=== PATIENT | male | born 1990 | race Caucasian/White ===

== ENCOUNTER 2018-05-06 22:53 | Observation (INO) ==
[2018-05-07] MEDS ORDERED: Sod Chloride 0.9% Inj 1,000 ML IV.SIG ONE ×2 (00:03→00:48)
[2018-05-07 00:36] LABS: Baso % (Auto) 0.4 % (0.0-2.0); Eos # (Auto) 0.1 th/mm3 (0.0-0.4); Eos % (Auto) 1.5 % (0.0-4.0); Hematocrit 46.1 % (39.0-51.0); Hemoglobin 15.5 gm/dL (13.0-17.0); Lymph % (Auto) 25.2 % (9.0-44.0); Mean Corpuscular HGB Conc 33.6 % (32.0-36.0); Mean Corpuscular Hemoglobin 30.9 pg (27.0-34.0); Mean Corpuscular Volume 91.9 fL (80.0-100.0); Mean Platelet Volume 9.4 fL (7.0-11.0); Mono # (Auto) 0.4 th/mm3 (0.0-0.9); Mono % (Auto) 5.2 % (0.0-8.0); Neut # (Auto) 5.4 th/mm3 (1.8-7.7); Neut % (Auto) 67.7 % (16.0-70.0); Platelet Count 193 th/mm3 (150-450); Red Blood Count 5.01 mil/mm3 (4.50-5.90); Red Cell Distribution Width 13.4 % (11.6-17.2); White Blood Count 7.9 th/mm3 (4.0-11.0)
--- NOTE | 2018-05-07 00:42 | CT ---
EXAM DATE: 05/07/2018 12:37 AM EDT AGE/SEX: 28 years / Male INDICATIONS: Seizure. CLINICAL DATA: This is the patient's initial encounter. Patient reports that signs and symptoms have been present for 1 day and indicates a pain score of Nonresponsive. MEDICAL/SURGICAL HISTORY: . Seizures / epilepsy None. RADIATION DOSE: 56.35 CTDI (mGy) COMPARISON: [facility] [place], CT BRAIN W/O CONTRAST, 08/11/2013. . TECHNIQUE: CT of the head without contrast. Using automated exposure control and adjustment of the mA and/or kV according to patient size, radiation dose was kept as low as reasonably achievable to ob tain optimal diagnostic quality images. DICOM format image data is available electronically for revi ew and comparison. FINDINGS: Cerebrum: The ventricles are normal for age. No evidence of midline shift, mass lesion, hemorrhage or acute infarction. No extraaxial fluid collections are seen. Posterior Fossa: The cerebellum and brainstem are intact. The 4th ventricle is midline. The cerebe llopontine angle is unremarkable. Extracranial: The visualized portion of the orbits is intact. Skull: The calvaria is intact. No evidence of skull fracture. CONCLUSION: 1. Negative CT Head non contrast. . Electronically signed by: Cl Vaughn MD 05/07/2018 12:40 AM EDT
[2018-05-07] MEDS ORDERED: SODIUM CHLOR IV.SIG ONE (00:49)
[2018-05-07] MEDS ORDERED: FOSPHENYTOIN IV.SIG ONE (00:49)
[2018-05-07 00:56] LABS: Creatine Kinase 152 U/L (39-308)
[2018-05-07 01:17] LABS: Anion Gap 17 meq/L (5-15); Blood Urea Nitrogen 16 mg/dL (7-18); Calcium 8.7 mg/dL (8.5-10.1); Carbon Dioxide 19.4 meq/L (21.0-32.0); Chloride 105 meq/L (98-107); Glomerular Filtration Rate 62 mL/min (>89); Glucose,Random 126 mg/dL (74-106); Magnesium 2.8 mg/dL (1.5-2.5); Potassium 3.9 meq/L (3.5-5.1); Sodium 141 meq/L (136-145)
--- NOTE | 2018-05-07 01:17 | ED ---
HPI General Chief Complaint: Seizure Stated Complaint: Seizure Time Seen by Provider: 05/06/18 23:42 Related Data Home Medications Medication Instructions Recorded Confirmed levetiracetam [Keppra] 500 mg PO Q12H 05/06/18 05/06/18 Allergies Allergy/AdvReac Type Severity Reaction Status Date / Time No Known Allergies Allergy Verified 05/06/18 23:29 [facility] Social History Social History Substance History: No History of Abuse Second Hand Smoke Exposure: No Smoking Status: Never smoker How Often Do You Have a Drink Containing Alcohol: Monthly or less Recent Travel in [facility] within the Last 8 Weeks: No Recent Out of Country Travel within the Last 8 Weeks: No Immunization History Tetanus Immunization: Unsure Hx Influenza Vaccine This Season: No Course Initial Documented Vital Signs Temperature 97.9 F 05/06/18 23:24 Pulse Rate 81 05/06/18 23:24 Respiratory Rate 20 05/06/18 23:24 Blood Pressure 120/75 05/06/18 23:24 Pulse Oximetry 95 05/06/18 23:24 Last Documented Vital Signs Temperature 97.9 F 05/06/18 23:24 Pulse Rate 92 H 05/07/18 04:23 Respiratory Rate 18 05/07/18 04:23 Blood Pressure 106/80 05/07/18 04:23 Pulse Oximetry 97 05/07/18 04:23 Medical Decision Making MDM Narrative Medical decision making narrative: 28-year-old male with known history of grand mal seizure previously on Keppra currently off medication identified to have a witnessed tonic-clonic seizure by coworker without trauma. This was associated with tongue trauma and bladder incontinence. While and CT patient with generalized tonic-clonic seizure witnessed by solar installer technician 1 minute or longer with tongue trauma and incontinence; patient returned from CT post ictal confusion administered Ativan 1 mg IV and fosphenytoin 1 g Differential Diagnosis Differential Diagnosis: Seizure disorder, status epilepticus, medication noncompliance, Medical Records Medical records reviewed: Yes I reviewed the patient's medical records. Lab Data Lab results reviewed: Yes I reviewed the patient's lab results. Result diagrams: 05/07/18 00:15 05/07/18 00:15 Lab Results 05/07/18 05/07/18 Range/Units 00:15 00:15 WBC 7.9 (4.0-11.0) th/mm3 RBC 5.01 (4.50-5.90) mil/mm3 Hgb 15.5 (13.0-17.0) gm/dL Hct 46.1 (39.0-51.0) % MCV 91.9 (80.0-100.0) fL MCH 30.9 (27.0-34.0) pg MCHC 33.6 (32.0-36.0) % RDW 13.4 (11.6-17.2) % Plt Count 193 (150-450) th/mm3 MPV 9.4 (7.0-11.0) fL Neut % (Auto) 67.7 (16.0-70.0) % Lymph % (Auto) 25.2 (9.0-44.0) % [place] % (Auto) 5.2 (0.0-8.0) % Eos % (Auto) 1.5 (0.0-4.0) % Baso % (Auto) 0.4 (0.0-2.0) % Neut # (Auto) 5.4 (1.8-7.7) th/mm3 Lymph # (Auto) 2.0 (1.0-4.8) th/mm3 [place] # (Auto) 0.4 (0.0-0.9) th/mm3 Eos # (Auto) 0.1 (0.0-0.4) th/mm3 Baso # (Auto) 0.0 (0.0-0.2) th/mm3 WBC Differential . Differential Comment Auto diff final Sodium 141 (136-145) meq/L Potassium 3.9 (3.5-5.1) meq/L Chloride 105 (98-107) meq/L Carbon Dioxide 19.4 L (21.0-32.0) meq/L Anion Gap 17 H (5-15) meq/L BUN 16 (7-18) mg/dL Creatinine 1.36 H (0.60-1.30) mg/dL Estimated GFR 62 L (>89) mL/min Random Glucose 126 H (74-106) mg/dL Calcium 8.7 (8.5-10.1) mg/dL Magnesium 2.8 H (1.5-2.5) mg/dL Total Creatine Kinase 152 (39-308) U/L Serum Alcohol Less than 3 (0-5) mg/dL Imaging Data Radiologist's impression: Head CT 05/07/18 00:03 CONCLUSION: 1. Negative CT Head non contrast. . Discharge Plan Discharge Disposition Patient Disposition: 28 Still Patient Discharge Condition Condition: Stable Discharge Details Diagnosis: Epileptic seizure Physicians Team ED Provider: Meenu Lemos Primary Care Provider: Primary Care Kia Joseph Attending Provider: Ashkan Anderson Status ED Status: Admitted Observation Patient
[2018-05-07] MEDS ORDERED: Bisacodyl 10 MG Supp RECTAL PRN (03:01)
[2018-05-07] MEDS ORDERED: Acetaminophen 325 MG Tablet PO PRN (03:01)
[2018-05-07] MEDS ORDERED: Temazepam 15 MG Capsule PO PRN (03:01)
[2018-05-07] MEDS: Sod Chloride 0.9% Inj 1,000 ML IV.CONT SCH ×2 (04:20→17:32)
[2018-05-07] MEDS: Senna/Docusate Sodium 8.6/50 MG Tablet PO SCH ×2 (08:35→21:31)
[2018-05-07] MEDS: levETIRAcetam 500 MG Tablet PO SCH ×2 (08:36→21:32)
--- NOTE | 2018-05-07 10:27 | P.HP ---
History of Present Illness Primary Care Physician: No Primary Care Physician Chief Complaint: seizures History of Present Illness: This is a 28-year-old white male with significant past medical history of seizure disorder. Presented to the emergency room after he had a witnessed tonic-clonic seizure by coworker. Patient had tongue trauma and bladder incontinence. Indicates that he stopped taking Keppra in September of this year as he could not afford it. Prior to this, he had another seizure that was mild about a month ago but did not seek any medical assistance. Patient indicates he usually gets an aura where he sees lights before the seizure comes on. Occasionally he has dizziness. Denies any drug/alcohol use, no recent fevers, no recent trauma. No recent illnesses. During emergency room evaluation he went for CT and had another tonic-clonic seizure that was witnessed by the computer field technician that lasted about a minute or longer. He again had tongue trauma and incontinence. Postictal he was confused. He was given Ativan 1 mg IV and fosphenytoin 1 g. At this time he is only complaining of mild headache. The rest of the laboratory workup completed in the emergency room was significant for creatinine 1.36, magnesium 2.5. Patient has history of acute kidney injury about 4 years ago after he had another seizure and did require nephrology evaluation. Indicates that his renal function has been stable but does not know his baseline. He is making urine, denies any urinary symptoms. Occasionally takes ibuprofen for pain. He has not followed up with nephrology since prior admission. Patient is now admitted for further evaluation and treatment. - Diagnosis (1) Epileptic seizure (2) Non compliance with medical treatment (3) GENARO (acute kidney injury) Review of Systems All other systems reviewed negative except as stated in HPI [facility] - History History Provided By: Patient - Medical History Medical History: Medical History (Last Updated 05/07/18 @ 16:06 by FLORENCE Luciano) GENARO (acute kidney injury) Bradycardia Seizure - Family History Family History: Family History (Last Updated 05/07/18 @ 16:09 by FLORENCE Luciano) Mother Fibromyalgia - Tobacco History Second Hand Smoke Exposure: No Smoking Status: Never smoker - Alcohol History How Often Do You Have a Drink Containing Alcohol: Monthly or less - Substance Use History Substance History: No History of Abuse - Travel History Recent Travel in the [place] Within the Last 8 Weeks: No Recent Travel Out of the Country Within the Last 8 Weeks: No - Immunization History Tetanus Immunization: Unsure Hx Influenza Vaccine This Season: No Medications and Allergies Active Medications: Active Medications Acetaminophen (Tylenol) 650 mg PO Q4H PRN PRN Reason: Temp > 100.4 Al Hydroxide/Mg Hydroxide (Milk Of Magnesia Liq) 30 ml PO Q12H PRN PRN Reason: Mild Constipation Bisacodyl (Dulcolax Supp) 10 mg RECTAL DAILY PRN PRN Reason: SEVERE CONSITIPATION Sodium Chloride (Ns Inj) 1,000 mls @ 100 mls/hr IV.CONT .Q10H [facility] Last Admin: 05/07/18 04:20 Dose: 100 mls/hr Lactulose (Lactulose Liq) 30 ml PO DAILY PRN PRN Reason: SEVERE CONSITIPATION Levetiracetam (Keppra) 500 mg PO Q12H [facility] Last Admin: 05/07/18 08:36 Dose: 500 mg Ondansetron HCl (Zofran Inj) 4 mg IV.PUSH Q6H PRN PRN Reason: NAUSEA OR VOMITING Senna/Docusate Sodium (Rossy-Colace) 1 tab PO BID [facility] Last Admin: 05/07/18 08:35 Dose: Not Given Sennosides (Senokot) 17.2 mg PO Q12H PRN PRN Reason: Moderate Constipation Sodium Chloride (Ns Flush) 2 ml IV.FLUSH PRN PRN PRN Reason: FLUSH AFTER USING IV ACCESS Temazepam (Restoril) 15 mg PO HS PRN PRN Reason: INSOMNIA Allergies Allergy/AdvReac Type Severity Reaction Status Date / Time No Known Allergies Allergy Verified 05/06/18 23:29 Home Medications Medication Instructions Recorded Confirmed Type levetiracetam [Keppra] 500 mg PO Q12H 05/06/18 05/06/18 History Exam Vital signs: Vital Signs 05/06/18 23:24 05/07/18 00:42 05/07/18 02:04 Temperature 97.9 F Pulse Rate 81 Respiratory Rate 20 Blood Pressure 120/75 Pulse Oximetry 95 95 95 05/07/18 04:23 05/07/18 07:10 Temperature 98 F Pulse Rate 92 H 90 Respiratory Rate 18 16 Blood Pressure 106/80 115/71 Pulse Oximetry 97 96 Intake & Output 05/06/18 05/07/18 05/07/18 18:59 06:59 18:59 Weight 63.503 kg Narrative: GENERAL: Well-nourished, well-developed patient in no apparent distress. SKIN: Warm and dry. HEAD: Atraumatic. Normocephalic. EYES: Pupils equal and round. No scleral icterus. No injection or drainage. ENT: No nasal bleeding or discharge. Mucous membranes pink and moist. Bruising and and redness noted to inner aspect of bottom lip, laceration to tip of the tongue NECK: Trachea midline. No JVD. CARDIOVASCULAR: Regular rate and rhythm. RESPIRATORY: No accessory muscle use. Clear to auscultation. Breath sounds equal bilaterally. GASTROINTESTINAL: Abdomen soft, non-tender, nondistended. Hepatic and splenic margins not palpable. MUSCULOSKELETAL: Extremities without clubbing, cyanosis, or edema. No obvious deformities. NEUROLOGICAL: Awake and alert. No obvious cranial nerve deficits. Motor grossly within normal limits. Five out of 5 muscle strength in the arms and legs. Normal speech. PSYCHIATRIC: Appropriate mood and affect; insight and judgment normal. Results - Labs CBC & Chem 7: 05/07/18 00:15 05/07/18 00:15 Labs: Laboratory Results - last 24 hr 05/07/18 05/07/18 00:15 00:15 WBC 7.9 RBC 5.01 Hgb 15.5 Hct 46.1 MCV 91.9 MCH 30.9 MCHC 33.6 RDW 13.4 Plt Count 193 MPV 9.4 Neut % (Auto) 67.7 Lymph % (Auto) 25.2 [place] % (Auto) 5.2 Eos % (Auto) 1.5 Baso % (Auto) 0.4 Neut # (Auto) 5.4 Lymph # (Auto) 2.0 [place] # (Auto) 0.4 Eos # (Auto) 0.1 Baso # (Auto) 0.0 WBC Differential . Differential Comment Auto diff final Sodium 141 Potassium 3.9 Chloride 105 Carbon Dioxide 19.4 L Anion Gap 17 H BUN 16 Creatinine 1.36 H Estimated GFR 62 L Random Glucose 126 H Calcium 8.7 Magnesium 2.8 H Total Creatine Kinase 152 Serum Alcohol Less than 3 - Imaging Impressions Head CT 05/07/18 00:03 CONCLUSION: 1. Negative CT Head non contrast. . Caprini VTE Risk Assessment Caprini VTE Risk Assessment: No/Low Risk (score <= 1) Caprini Risk Assessment Model: Point Value = 1 Point Value = 2 Point Value = 3 Point Value = 5 Age 41-60 Minor surgery BMI > 25 kg/m2 Swollen legs Varicose veins or History of unexplained or recurrent spontaneous Oral contraceptives or hormone replacement Sepsis (< 1 month) Serious lung disease, including pneumonia (< 1 month) Abnormal pulmonary function Acute myocardial infarction Congestive heart failure (< 1 month) History of inflammatory bowel disease Medical patient at bed rest Age 61-74 Arthroscopic surgery Major open surgery (> 45 min) Laparoscopic surgery (> 45 min) Malignancy Confined to bed (> 72 hours) Immobilizing plaster cast Central venous access Age >= 75 History of VTE Family history of VTE Factor V Leiden Prothrombin [id number] Lupus anticoagulant Anticardiolipin antibodies Elevated serum homocysteine Heparin-induced thrombocytopenia Other congenital or acquired thrombophilia Stroke (< 1 month) Elective arthroplasty Hip, pelvis, or leg fracture Acute spinal cord injury (< 1 month) Prophylaxis Regimen: Total Risk Factor Score Risk Level Prophylaxis Regimen 0-1 Low Early ambulation 2 Moderate Order ONE of the following: *Sequential Compression Device (SCD) *Heparin 5000 units SQ BID 3-4 Higher Order ONE of the following medications: *Heparin 5000 units SQ TID *Enoxaparin/Lovenox 40 mg SQ daily (WT < 150 kg, CrCl > 30 mL/min) *Enoxaparin/Lovenox 30 mg SQ daily (WT < 150 kg, CrCl > 10-29 mL/min) *Enoxaparin/Lovenox 30 mg SQ BID (WT < 150 kg, CrCl > 30 mL/min) AND/OR *Sequential Compression Device (SCD) 5 or more Highest Order ONE of the following medications: *Heparin 5000 units SQ TID (Preferred with Epidurals) *Enoxaparin/Lovenox 40 mg SQ daily (WT < 150 kg, CrCl > 30 mL/min) *Enoxaparin/Lovenox 30 mg SQ daily (WT < 150 kg, CrCl > 10-29 mL/min) *Enoxaparin/Lovenox 30 mg SQ BID (WT < 150 kg, CrCl > 30 mL/min) AND *Sequential Compression Device (SCD) Assessment and Plan - Assessment (1) Epileptic seizure Code(s): G40.909 - Epilepsy, unspecified, not intractable, without status epilepticus Status: Acute (2) Non compliance with medical treatment Code(s): Z91.19 - Patient's noncompliance with other medical treatment and regimen Status: Acute (3) GENARO (acute kidney injury) Code(s): N17.9 - Acute kidney failure, unspecified Status: Acute - Plan This is a 28-year-old white male with significant past medical history of seizure disorder. Presented to the emergency room after he had a witnessed tonic-clonic seizure by coworker. Patient had tongue trauma and bladder incontinence. Indicates that he stopped taking Keppra in September of this year as he could not afford it. He had another tonic-clonic seizure while in the emergency room Recurrent seizures secondary to noncompliance, stopped taking Keppra in September 2017. Given Dilantin and Ativan in ED -Continuous cardiac telemetry monitoring -Seizure precautions -Neurochecks every 4 -Consult neurology for evaluation -Continue with Keppra 500 mg p.o. twice daily GENARO -was given IVF bolus in ED -Repeat BMP in am Non compliance with medication -CM consult for medication assistance Plan of care discussed with patient and RN. Further management of the patient will be dependent on hospital course We will follow up with neurology recommendations, possible discharge tomorrow if no recurrent seizures. (1) Epileptic seizure Qualifiers: Status epilepticus: without status epilepticus
[2018-05-07 20:22] LABS: Bilirubin,Urine Negative (Negative); Clarity,Urine Clear (Clear); Color,Urine Yellow (Yellw/Straw); Glucose,Urine (UA) Negative (Negative); Leukocyte Esterase,Urine Negative (Negative); Nitrite,Urine Negative (Negative); Specific Gravity,Urine 1.011 (1.002-1.035)
[2018-05-07 20:27] LABS: Amphetamine Screen,Urine Neg (Neg); Barbiturate Screen,Urine Neg (Neg); Cannabinoid Screen,Urine Pos (Neg); Cocaine Screen,Urine Neg (Neg)
[2018-05-07 20:33] LABS: Opiate Screen,Urine Neg (Neg)
[2018-05-08] MEDS: Sod Chloride 0.9% Inj 1,000 ML IV.CONT SCH ×2 (07:18→08:15)
[2018-05-08 08:14] VITALS: BP 128/61; PULSE 64; RESP 18; TEMP 97.8; O2SAT 96
--- NOTE | 2018-05-08 08:39 | MB ---
cc: Paula Gallagher MD DATE: 05/07/2018 REASON FOR CONSULTATION: Seizure. HISTORY OF PRESENT ILLNESS: The patient is a 28-year-old man with a history of epilepsy diagnosed a few years ago, apparently was having a witnessed clonic tonic seizure, witnessed by a coworker who works at a hotel. He had incontinence and some tongue biting. He stopped apparently taking his Keppra in September due to cost, but did tolerate it. He had an extensive evaluation he states in the past by Dr. Black, was admitted here for about a week. Apparently, he was given some Ativan and Cerebyx in the ED. Feeling better now. Offers no new issues. No complaints. No weakness. No family history of epilepsy. He has no history of head trauma. Normal . No STICK ROLLER infections. Normal developmental milestones. PAST MEDICAL HISTORY: Epilepsy, acute kidney injury, bradycardia and seizures. FAMILY HISTORY: Fibromyalgia in the mother. SOCIAL HISTORY: Works for a hotel, in the front desk attendant. Does not smoke. Drinks alcohol maybe monthly or less. No substance abuse. PHYSICAL EXAMINATION: VITAL SIGNS: Temperature is 98.1, pulse 66, respiratory rate 18, blood pressure 118/61. NEUROLOGIC: He is awake, alert. He is fluent. Pupils reactive. Face symmetrical. Tongue midline. Motor-cuenca, no drift or lag. Cerebellar is normal. DTRs 1+. Toes downgoing. Gait is withheld at this time. IMAGING: He had a CT of the head performed that was negative. LABORATORY DATA: CBC is normal. Chemistry CO2 was 19.4, creatinine 1.36, GFR 62, glucose 126, magnesium 2.8. Tox screen, alcohol was negative. Going back into the old chart, trying to find if there is any old records. Apparently, he was here. He saw Dr. Mane, read his EEG back in 2013, it was normal. He also had an echocardiogram at that time in 2013 and EF of 60-65%, no wall motion abnormalities. He had a brain MRI at that point and it was a negative study without contrast in 04/2014. IMPRESSION: Seizure. The patient states most of the time it occurs at night, but he had a mild aura today. I will continue his Keppra 500 mg every 12 hours. Maintain seizure precautions. Use Ativan p.r.n. No driving for six months. No swimming alone or climbing any ladders. He is advised to stay on day shift at work. Primary team will consult case management, get him assistance for the medication and possibly go to his other clinic for followup. If stable, can be discharged tomorrow. I will recheck his renal parameters tomorrow. He might be a little dehydrated. MD MI Gorman/REYES , 05:07 PM , 05:14 PM
--- NOTE | 2018-05-08 09:43 | P.PN ---
Subjective Interval history: Denies any auras, no dizziness, no changes in vision, no seizures. Has been voiding well. No other concerns. No acute changes overnight. Was seen by neurology yesterday. Anxious to go home, verbalizes understanding regarding compliance with taking medications. 12 point review of systems completed, negative except as noted above Physical Exam Vital signs: Vital Signs 05/07/18 10:39 05/07/18 14:07 05/07/18 14:57 Temperature 98.1 F Pulse Rate 82 70 66 Respiratory Rate 16 14 18 Blood Pressure 121/61 98/59 L 118/61 Pulse Oximetry 95 96 96 05/07/18 19:49 05/08/18 00:00 05/08/18 08:00 Temperature 98.2 F 97.8 F Pulse Rate 71 77 64 Respiratory Rate 16 16 18 Blood Pressure 126/74 118/68 128/61 Pulse Oximetry 98 99 96 Intake & Output 05/07/18 05/08/18 05/08/18 18:59 06:59 18:59 Intake Total 1480 / 1480 1000 / 1000 Balance 1480 / 1480 1000 / 1000 Intake: IV 1000 / 1000 1000 / 1000 NS Inj 1,000 ML @ 100 mls/hr IV 1000 / 1000 1000 / 1000 .CONT .Q10H [facility] Rx#:[id number] Oral 480 / 480 Narrative: GENERAL: Well-nourished, well-developed patient in no apparent distress. SKIN: Warm and dry. HEAD: Atraumatic. Normocephalic. EYES: Pupils equal and round. No scleral icterus. No injection or drainage. ENT: No nasal bleeding or discharge. Mucous membranes pink and moist. Bruising and and redness noted to inner aspect of bottom lip, laceration to tip of the tongue NECK: Trachea midline. No JVD. CARDIOVASCULAR: Regular rate and rhythm. RESPIRATORY: No accessory muscle use. Clear to auscultation. Breath sounds equal bilaterally. GASTROINTESTINAL: Abdomen soft, non-tender, nondistended. Hepatic and splenic margins not palpable. MUSCULOSKELETAL: Extremities without clubbing, cyanosis, or edema. No obvious deformities. NEUROLOGICAL: Awake and alert. No obvious cranial nerve deficits. Motor grossly within normal limits. Five out of 5 muscle strength in the arms and legs. Normal speech. PSYCHIATRIC: Appropriate mood and affect; insight and judgment normal. Results - Labs CBC & Chem 7: 05/07/18 00:15 05/08/18 08:31 Laboratory Results - last 24 hr 05/07/18 05/07/18 19:45 19:45 Urine Color Yellow Urine Clarity Clear Urine pH 5.0 Ur Specific [place] 1.011 Urine Protein Negative Urine Glucose (UA) Negative Urine Ketones Trace Urine Occult Blood Negative Urine Nitrate Negative Urine Bilirubin Negative Urine Urobilinogen Less than 2 Ur Leukocyte Esterase Negative Urine RBC Less than 1 Urine WBC Less than 1 Urine Opiates Screen Neg Ur Barbiturates Screen Neg Ur Amphetamines Screen Neg U Benzodiazepines Scrn Neg Urine Cocaine Screen Neg U Cannabinoids Screen Pos H Assessment and Plan - Assessment (1) Epileptic seizure Code(s): G40.909 - Epilepsy, unspecified, not intractable, without status epilepticus Status: Acute (2) Non compliance with medical treatment Code(s): Z91.19 - Patient's noncompliance with other medical treatment and regimen Status: Acute (3) GENARO (acute kidney injury) Code(s): N17.9 - Acute kidney failure, unspecified Status: Acute - Plan This is a 28-year-old white male with significant past medical history of seizure disorder. Presented to the emergency room after he had a witnessed tonic-clonic seizure by coworker. Patient had tongue trauma and bladder incontinence. Indicates that he stopped taking Keppra in September of this year as he could not afford it. He had another tonic-clonic seizure while in the emergency room Recurrent seizures secondary to noncompliance, stopped taking Keppra in September 2017. Given Dilantin and Ativan in ED No further seizures, no headaches. -Continuous cardiac telemetry monitoring -Seizure precautions -Neurochecks every 4 -Appreciate neurology input, discussed with Dr. Gallagher. Okay to continue with Keppra 500 mg twice daily. Patient will need follow-up as outpatient for further adjustment if seizures recur. GENARO, resolved. -Labs reviewed, received IV fluids in the emergency room. Creatinine back to baseline Non compliance with medication - consult for medication assistance -patient has been given prescription for 1 month, instructed to follow-up at [facility]. He verbalizes understanding. Okay to discharge Needs follow-up at [facility] in 1-[address]ed not to drive, swim, operate heavy machinery for at least 6 months. Emphasize compliance with medication adherence to prevent seizure (1) Epileptic seizure Qualifiers: Status epilepticus: without status epilepticus
[2018-05-08 10:03] LABS: Anion Gap 8 meq/L (5-15); Calcium 8.6 mg/dL (8.5-10.1); Carbon Dioxide 26.6 meq/L (21.0-32.0); Chloride 108 meq/L (98-107); Glomerular Filtration Rate Greater Than 89 mL/min (>89); Glucose,Random 78 mg/dL (74-106); Potassium 3.5 meq/L (3.5-5.1); Sodium 143 meq/L (136-145)
[2018-05-08 10:10] LABS: Blood Urea Nitrogen 8 mg/dL (7-18)
[2018-05-08] MEDS: Senna/Docusate Sodium 8.6/50 MG Tablet PO SCH (10:15)
[2018-05-08] MEDS: levETIRAcetam 500 MG Tablet PO SCH (10:35)
== END 2018-05-08 12:16 | disposition home or self-care (01) ==
LOC: NEPFCDU 22:53 → NEPC 22:53 → NEDA 22:53 → NEDH 05-07 05:43 → NEDA 05-07 10:59 → NEPFCDU 05-07 14:59
PROVIDERS: ADMIT Hospitalist; ATTEND Hospitalist